=== PATIENT | female | born 1995 | race Caucasian/White ===

== ENCOUNTER 2017-09-23 10:28 | Emergency (ER) | payer MEDICARE, MEDICAID ==
[~2017-09-23] VITALS: Ht 162.6 cm; Wt 94.3 kg
[2017-09-23 12:27] LABS: ALANINE AMINOTRANSFERASE 21 U/L (12-78); ALBUMIN 3.5 G/DL (3.4-5.0); ALKALINE PHOSPHATASE 87 IU/L (46-116); ANION GAP 9 (8-16); ASPARTATE AMINO TRANSFERASE 15 U/L (10-37); BILIRUBIN,TOTAL 0.3 MG/DL (0.1-1.0); BLOOD UREA NITROGEN 9 MG/DL (7-18); BUN/CREATININE RATIO 12.7 (6.6-38.0); CALCIUM 8.8 MG/DL (8.5-10.1); CHLORIDE 108 MMOL/L (99-107); CREATININE 0.71 MG/DL (0.40-0.90); ETHANOL < 0.010 GM/DL (0.0-0.010); GLUCOSE 81 MG/DL (70-104); POTASSIUM 3.8 MMOL/L (3.5-5.1); SODIUM 143 MMOL/L (135-145); TOTAL CARBON DIOXIDE 25.7 MMOL/L (24-32); eGFR > 90 ML/MIN
[2017-09-23 12:31] LABS: BASOPHILS % (AUTO) 0.1 % (0-1); EOSINOPHILS # (AUTO) 0.1 X10'3 (0-0.9); EOSINOPHILS % (AUTO) 2.1 % (0-6); HEMATOCRIT 35.9 % (35.0-45.0); HEMOGLOBIN 12.7 g/dl (12.0-16.0); LYMPHOCYTES # (AUTO) 2.9 X10'3 (1.1-4.8); MEAN CORPUSCULAR HEMOGLOBIN 29.6 PG (27.0-31.0); MEAN CORPUSCULAR HGB CONC 35.3 % (33.0-36.5); MEAN CORPUSCULAR VOLUME 83.8 FL (78-98); MEAN PLATELET VOLUME 8.9 FL (7.4-10.4); MONOCYTES # (AUTO) 0.4 X10'3 (0-0.9); MONOCYTES % (AUTO) 6.4 % (2-12); NEUTROPHILS # (AUTO) 2.7 X10'3 (1.8-7.7); NEUTROPHILS % (AUTO) 44.4 % (42-75); PLATELET COUNT 373 X10'3 (140-440); RED BLOOD COUNT 4.28 X10'6 (4.20-5.60); RED CELL DISTRIBUTION WIDTH 12.8 % (11.5-14.5); WHITE BLOOD COUNT 6.1 X10'3 (4.5-11.0)
[2017-09-23 13:02] LABS: URINE HCG NEGATIVE (NEG)
[2017-09-23 13:04] LABS: CLARITY,URINE Clear (Clear); COLOR,URINE Yellow (Yellow); GLUCOSE, URINE Negative (Neg); KETONES,URINE Negative (Neg); LEUKOCYTE ESTERASE ,URINE Trace (Neg); NITRITES, URINE Negative (Neg); OCCULT BLOOD,URINE Negative (Neg); PROTEIN,URINE Negative (Neg); UROBILINOGEN,URINE 0.2 E.U/dL (0.2-1.0)
[2017-09-23 13:13] LABS: UA COLLECTION TYPE CLN CATCH MIDSTREAM; URINE AMPHETAMINE SCREEN NEGATIVE (Neg); URINE BARBITUATE SCREEN NEGATIVE (Neg); URINE BENZODIAZEPINES SCREEN NEGATIVE (Neg); URINE CANNABINOID SCREEN NEGATIVE (Neg); URINE COCAINE SCREEN NEGATIVE (Neg); URINE METHADONE SCREEN NEGATIVE (Neg); URINE OPIATE SCREEN NEGATIVE (Neg); URINE PHENCYCLIDINE SCREEN NEGATIVE (Neg)
[2017-09-23 13:15] LABS: RBC,URINE NONE SEEN /HPF (0-2); WBC,URINE 0-4 /HPF (0-4)
[2017-09-23 13:16] LABS: BACTERIA,URINE FEW /HPF (Neg); SQUAMOUS EPITHELIAL CELL,UR FEW /LPF (FEW)
[2017-09-23] MEDS ORDERED: FLUO20CA39 PO (15:19)
[2017-09-23] MEDS ORDERED: DIPH25CA46 PO (15:19)
[2017-09-23] MEDS ORDERED: QUET-1 PO ×2 (15:19)
[2017-09-23] MEDS ORDERED: diphenhydrAMINE 25mg capsule PO PRN (16:05)
[2017-09-23] MEDS ORDERED: quetiapine 100mg tablet PO SCH (21:00)
[2017-09-23 22:31] VITALS: BP 136/83
[2017-09-24] MEDS ORDERED: quetiapine 100mg tablet PO SCH (08:00)
[2017-09-24] MEDS ORDERED: FLUoxetine 20mg capsule PO SCH (08:00)
== END 2017-09-23 22:33 | disposition home or self-care (01) ==
LOC: ER 10:29
DX: R45.851 Suicidal ideations (principal); F41.9 Anxiety disorder, unspecified; F32.9 Major depressive disorder, single episode, unspecified
CPT/HCPCS: 36415; 80053; 80305; 80320; 81001; 81025; 84443; 85025; 99285

== ENCOUNTER 2017-09-23 20:40 | Inpatient (IN) | payer MEDICARE, MEDICAID ==
[~2017-09-23] VITALS: Ht 162.6 cm; Wt 90.6 kg
[~2017-09-23 20:40] MED LIST: DIPH25CA46 PO; FLUO20CA39 PO; QUET-1 PO
[2017-09-23 23:00] VITALS: BP 119/80
[2017-09-23] MEDS ORDERED: traZODone 50mg tablet PO PRN (23:20)
[2017-09-23] MEDS ORDERED: diphenhydrAMINE 25mg capsule PO PRN (23:30)
[2017-09-23] MEDS: hydrOXYzine 25 MG tablet PO PRN (23:38)
[2017-09-24 07:47] LABS: HEMOGLOBIN A1C 5.2 % (4.5-6.2)
[2017-09-24 07:56] LABS: CHOL/HDL RATIO 6.6 (0.00-4.99); CHOLESTEROL 159 MG/DL (0-200); HDL CHOLESTEROL 24 MG/DL (35-60); LDL CHOLESTEROL 120 MG/DL (50-100); TRIGLYCERIDES 87 MG/DL (20-135)
[2017-09-24 08:05] VITALS: BP 111/87
[2017-09-24] MEDS: FLUoxetine 20mg capsule PO SCH (08:17)
[2017-09-24] MEDS: quetiapine 100mg tablet PO SCH (08:17)
[2017-09-24 19:00] VITALS: BP 126/83
[2017-09-24] MEDS: hydrOXYzine 25 MG tablet PO PRN (20:31)
[2017-09-24] MEDS ORDERED: quetiapine 100mg tablet PO SCH (21:00)
[2017-09-25 07:34] VITALS: BP 125/74
[2017-09-25] MEDS ORDERED: HYDR-3717 PO (07:41)
[2017-09-25] MEDS: FLUoxetine 20mg capsule PO SCH (07:53)
[2017-09-25] MEDS: quetiapine 100mg tablet PO SCH (07:53)
== END 2017-09-25 10:25 | disposition home or self-care (01) | DRG 885 ==
LOC: ADULT MH 20:40
PROVIDERS: ADMIT Psychiatry & Neurology Psychiatry; ATTEND Psychiatry & Neurology Psychiatry
DX: F39 Unspecified mood [affective] disorder (principal); R45.851 Suicidal ideations; E66.9 Obesity, unspecified; F31.9 Bipolar disorder, unspecified; F41.9 Anxiety disorder, unspecified; Z59.0 Homelessness; Z79.899 Other long term (current) drug therapy; Z82.3 Family history of stroke; Z68.34 Body mass index [BMI] 34.0-34.9, adult
CPT/HCPCS: 36415; 80061; 83036; 87070; 99285; Q0163; Q0177

== ENCOUNTER 2017-11-11 08:07 | Emergency (ER) | payer MEDICARE, MEDICAID ==
[~2017-11-11] VITALS: Ht 162.6 cm; Wt 98.8 kg
[~2017-11-11 08:07] MED LIST changes: +ONDA8TAB6 PO
[2017-11-11 08:14] VITALS: BP 122/74
[2017-11-11] MEDS ORDERED: PHE12.5R RC (08:51)
[2017-11-11 09:02] LABS: CLARITY,URINE CLOUDY (Clear); COLOR,URINE YELLOW (Yellow); GLUCOSE, URINE NEGATIVE (Neg); KETONES,URINE TRACE mg/dl (Neg); LEUKOCYTE ESTERASE ,URINE TRACE (Neg); NITRITES, URINE NEGATIVE (Neg); OCCULT BLOOD,URINE LARGE (Neg); PROTEIN,URINE 30 mg/dl (Neg)
[2017-11-11 09:03] LABS: UA COLLECTION TYPE CLN CATCH MIDSTREAM
[2017-11-11 09:05] LABS: URINE HCG NEGATIVE (NEG)
[2017-11-11 09:10] LABS: BACTERIA,URINE 2+ /HPF (Neg); MUCUS STRANDS MODERATE /LPF (Neg); SQUAMOUS EPITHELIAL CELL,UR MANY /LPF (FEW); STARCH,URINE FEW /HPF (NEGATIVE); WBC,URINE 0-4 /HPF (0-4)
== END 2017-11-11 08:58 | disposition home or self-care (01) ==
LOC: ER 08:07
DX: R11.2 Nausea with vomiting, unspecified (principal); F41.9 Anxiety disorder, unspecified; F31.9 Bipolar disorder, unspecified; Z91.018 Allergy to other foods; Z79.899 Other long term (current) drug therapy
CPT/HCPCS: 81001; 81025; 99284

== ENCOUNTER 2017-11-21 18:04 | Emergency (ER) | payer MEDICARE, MEDICAID ==
[~2017-11-21] VITALS: Ht 162.6 cm; Wt 88.0 kg
[~2017-11-21 18:04] MED LIST changes: +PHE12.5R RC
[2017-11-21 19:03] LABS: BASOPHILS % (AUTO) 0.3 % (0-1); EOSINOPHILS # (AUTO) 0.1 X10'3 (0-0.9); EOSINOPHILS % (AUTO) 1.2 % (0-6); HEMATOCRIT 39.7 % (35.0-45.0); HEMOGLOBIN 13.9 g/dl (12.0-16.0); LYMPHOCYTES # (AUTO) 2.7 X10'3 (1.1-4.8); LYMPHOCYTES % (AUTO) 32.2 % (21-51); MEAN CORPUSCULAR HEMOGLOBIN 29.9 PG (27.0-31.0); MEAN CORPUSCULAR VOLUME 85.3 FL (78-98); MEAN PLATELET VOLUME 9.3 FL (7.4-10.4); MONOCYTES # (AUTO) 0.6 X10'3 (0-0.9); NEUTROPHILS # (AUTO) 4.9 X10'3 (1.8-7.7); NEUTROPHILS % (AUTO) 59.3 % (42-75); PLATELET COUNT 347 X10'3 (140-440); RED BLOOD COUNT 4.65 X10'6 (4.20-5.60); RED CELL DISTRIBUTION WIDTH 13.9 % (11.5-14.5); WHITE BLOOD COUNT 8.3 X10'3 (4.5-11.0)
[2017-11-21 19:16] LABS: ALBUMIN 3.9 G/DL (3.4-5.0); ALBUMIN/GLOBULIN RATIO 1.1 (1.1-1.5); ANION GAP 11 (8-16); ASPARTATE AMINO TRANSFERASE 13 U/L (10-37); BILIRUBIN,TOTAL 0.4 MG/DL (0.1-1.0); BLOOD UREA NITROGEN 6 MG/DL (7-18); BUN/CREATININE RATIO 6.5 (6.6-38.0); CHLORIDE 106 MMOL/L (99-107); CREATININE 0.92 MG/DL (0.40-0.90); GLUCOSE 94 MG/DL (70-104); POTASSIUM 3.9 MMOL/L (3.5-5.1); SODIUM 142 MMOL/L (135-145); TOTAL CARBON DIOXIDE 25.5 MMOL/L (24-32); TOTAL PROTEIN 7.3 G/DL (6.4-8.2); eGFR 75 ML/MIN
[2017-11-21 19:17] LABS: ALANINE AMINOTRANSFERASE 19 U/L (12-78); ALKALINE PHOSPHATASE 76 IU/L (46-116)
[2017-11-21 19:19] LABS: ETHANOL < 0.010 GM/DL (0.0-0.010)
[2017-11-21 19:26] LABS: URINE HCG NEGATIVE (NEG)
[2017-11-21 19:43] LABS: URINE AMPHETAMINE SCREEN NEGATIVE (Neg); URINE BARBITUATE SCREEN NEGATIVE (Neg); URINE BENZODIAZEPINES SCREEN NEGATIVE (Neg); URINE CANNABINOID SCREEN NEGATIVE (Neg); URINE COCAINE SCREEN NEGATIVE (Neg); URINE METHADONE SCREEN NEGATIVE (Neg); URINE OPIATE SCREEN NEGATIVE (Neg); URINE PHENCYCLIDINE SCREEN NEGATIVE (Neg)
[2017-11-22 00:38] VITALS: BP 118/53
== END 2017-11-22 00:40 | disposition home or self-care (01) ==
LOC: ER 18:05
DX: F31.9 Bipolar disorder, unspecified (principal); F41.9 Anxiety disorder, unspecified; R45.851 Suicidal ideations; Z79.899 Other long term (current) drug therapy
CPT/HCPCS: 36415; 80053; 80305; 80320; 81025; 85025; 99284

== ENCOUNTER 2018-01-31 20:53 | Emergency (ER) | payer MEDICARE, MEDICAID ==
[~2018-01-31] VITALS: Ht 162.6 cm; Wt 88.0 kg
[~2018-01-31 20:53] MED LIST changes: -PHE12.5R RC
[2018-01-31] MEDS ORDERED: dexamethasone sod phosphate 10mg/ml inj IV STA (21:17)
[2018-01-31] MEDS ORDERED: normal saline 1000ML IV soln IVB ONE (21:20)
[2018-01-31] MEDS ORDERED: famotidine/PF 10 mg/ml inj IV ONE (21:20)
[2018-01-31] MEDS ORDERED: epiNEPHrine 1 mg/ml inj SQ PRN (21:20)
[2018-01-31] MEDS ORDERED: EPIN0.3P8 IM (21:29)
[2018-01-31] MEDS ORDERED: PRED20TA PO (21:30)
[2018-01-31 22:40] VITALS: BP 119/65
== END 2018-01-31 22:44 | disposition home or self-care (01) ==
LOC: ER 20:54
DX: T78.1XXA Other adverse food reactions, not elsewhere classified, initial encounter (principal); X58.XXXA Exposure to other specified factors, initial encounter; Z79.899 Other long term (current) drug therapy
CPT/HCPCS: 96374; 96375; 99284; J1100; J3490; J7030

== ENCOUNTER 2018-03-20 18:34 | Emergency (ER) | payer MEDICARE, MEDICAID ==
[~2018-03-20] VITALS: Ht 162.6 cm; Wt 84.0 kg
[~2018-03-20 18:34] MED LIST changes: +EPIN0.3P8 IM
[2018-03-20 18:48] VITALS: BP 125/80
[2018-03-20] MEDS ORDERED: PENI250T2 PO (18:59)
[2018-03-20] MEDS ORDERED: IBUP-1984 PO (18:59)
[2018-03-20] MEDS ORDERED: HYDROcodone/acetaminophen 5mg/325mg tablet PO ONE (19:00)
== END 2018-03-20 19:09 | disposition home or self-care (01) ==
LOC: ER 18:35
DX: K08.89 Other specified disorders of teeth and supporting structures (principal); Z79.899 Other long term (current) drug therapy
CPT/HCPCS: 99283

== ENCOUNTER 2018-04-04 17:35 | Emergency (ER) | payer MEDICARE, MEDICAID ==
[~2018-04-04] VITALS: Ht 162.6 cm; Wt 83.5 kg
[~2018-04-04 17:35] MED LIST changes: +IBUP-1984 PO
[2018-04-04] MEDS ORDERED: famotidine/PF 10 mg/ml inj IV ONE (19:00)
[2018-04-04] MEDS ORDERED: diphenhydrAMINE 50 mg/ml inj IV ONE (19:00)
[2018-04-04] MEDS ORDERED: dexamethasone sod phosphate 10mg/ml inj IV STA (19:00)
[2018-04-04 20:01] VITALS: BP 139/76
== END 2018-04-04 20:03 | disposition home or self-care (01) ==
LOC: ER 17:36
DX: R21 Rash and other nonspecific skin eruption (principal); T78.40XA Allergy, unspecified, initial encounter; R06.02 Shortness of breath; Z79.899 Other long term (current) drug therapy; Z91.010 Allergy to peanuts; Y92.9 Unspecified place or not applicable
CPT/HCPCS: 96374; 96375; 99284; J1100; J1200; J3490

== ENCOUNTER 2018-04-06 22:00 | Emergency (ER) | payer MEDICARE, MEDICAID ==
[~2018-04-06] VITALS: Ht 162.6 cm; Wt 86.4 kg
[2018-04-06 23:44] VITALS: BP 110/60
== END 2018-04-07 00:05 | disposition home or self-care (01) ==
LOC: ER 22:00
DX: R22.0 Localized swelling, mass and lump, head (principal); T78.40XA Allergy, unspecified, initial encounter; Z91.010 Allergy to peanuts; Z79.899 Other long term (current) drug therapy; Y92.9 Unspecified place or not applicable
CPT/HCPCS: 99283

== ENCOUNTER 2018-04-12 00:40 | Emergency (ER) | payer MEDICARE, MEDICAID ==
[~2018-04-12] VITALS: Ht 162.6 cm; Wt 82.8 kg
[2018-04-12 00:42] VITALS: BP 115/76
[2018-04-12 01:09] LABS: CLARITY,URINE CLEAR (Clear); COLOR,URINE YELLOW (Yellow); GLUCOSE, URINE NEGATIVE (Neg); KETONES,URINE NEGATIVE (Neg); LEUKOCYTE ESTERASE ,URINE NEGATIVE (Neg); NITRITES, URINE NEGATIVE (Neg); OCCULT BLOOD,URINE NEGATIVE (Neg); PROTEIN,URINE NEGATIVE (Neg); UROBILINOGEN,URINE 0.2 E.U/dL (0.2-1.0)
[2018-04-12 01:11] LABS: URINE HCG NEGATIVE (NEG)
[2018-04-12 01:21] LABS: UA COLLECTION TYPE CLN CATCH MIDSTREAM
[2018-04-12 01:49] LABS: BASOPHILS # (AUTO) 0.1 X10'3 (0-0.2); BASOPHILS % (AUTO) 0.7 % (0-1); EOSINOPHILS # (AUTO) 0.2 X10'3 (0-0.9); EOSINOPHILS % (AUTO) 2.6 % (0-6); HEMATOCRIT 39.3 % (35.0-45.0); HEMOGLOBIN 13.6 g/dl (12.0-16.0); LYMPHOCYTES # (AUTO) 2.8 X10'3 (1.1-4.8); LYMPHOCYTES % (AUTO) 37.9 % (21-51); MEAN CORPUSCULAR HEMOGLOBIN 30.5 PG (27.0-31.0); MEAN CORPUSCULAR HGB CONC 34.7 % (33.0-36.5); MEAN PLATELET VOLUME 9.4 FL (7.4-10.4); MONOCYTES # (AUTO) 0.5 X10'3 (0-0.9); MONOCYTES % (AUTO) 6.1 % (2-12); NEUTROPHILS # (AUTO) 3.8 X10'3 (1.8-7.7); NEUTROPHILS % (AUTO) 52.7 % (42-75); PLATELET COUNT 354 X10'3 (140-440); RED BLOOD COUNT 4.47 X10'6 (4.20-5.60); RED CELL DISTRIBUTION WIDTH 12.5 % (11.5-14.5); WHITE BLOOD COUNT 7.4 X10'3 (4.5-11.0)
[2018-04-12 01:58] LABS: PROTHROMBIN TIME 10.7 SECONDS (9.0-12.0)
[2018-04-12 02:07] LABS: ALANINE AMINOTRANSFERASE 13 U/L (12-78); ALBUMIN 3.5 G/DL (3.4-5.0); ALBUMIN/GLOBULIN RATIO 1.1 (1.1-1.5); ALKALINE PHOSPHATASE 60 IU/L (46-116); ANION GAP 10 (8-16); ASPARTATE AMINO TRANSFERASE 12 U/L (10-37); BILIRUBIN,TOTAL 0.4 MG/DL (0.1-1.0); BLOOD UREA NITROGEN 5 MG/DL (7-18); BUN/CREATININE RATIO 5.3 (6.6-38.0); CALCIUM 8.7 MG/DL (8.5-10.1); CHLORIDE 109 MMOL/L (99-107); CREATININE 0.95 MG/DL (0.40-0.90); GLUCOSE 86 MG/DL (70-104); POTASSIUM 3.2 MMOL/L (3.5-5.1); SODIUM 143 MMOL/L (135-145); TOTAL CARBON DIOXIDE 23.8 MMOL/L (24-32); TOTAL PROTEIN 6.8 G/DL (6.4-8.2); eGFR 72 ML/MIN
[2018-04-12 02:20] LABS: BETA HCG,QUANTITATIVE < 1.0 mIU/ml
[2018-04-12] MEDS ORDERED: ONDA8TAB9 PO (02:21)
[2018-04-12] MEDS ORDERED: ondansetron 4mg rapidly disintigrating tab PO ONE (02:25)
[2018-04-12] MEDS ORDERED: HYDROcodone/acetaminophen 5mg/325mg tablet PO ONE (02:25)
[2018-04-15] MEDS ORDERED: MUPI15CR TOP (20:37)
== END 2018-04-12 02:30 | disposition home or self-care (01) ==
LOC: ER 00:41
DX: R11.2 Nausea with vomiting, unspecified (principal); R10.13 Epigastric pain; R19.7 Diarrhea, unspecified; G43.909 Migraine, unspecified, not intractable, without status migrainosus; G89.29 Other chronic pain; M54.9 Dorsalgia, unspecified
CPT/HCPCS: 36415; 80053; 81003; 81025; 84702; 85025; 85610; 99284

== ENCOUNTER 2018-04-28 01:22 | Emergency (ER) | payer MEDICARE, MEDICAID ==
[~2018-04-28] VITALS: Ht 152.4 cm; Wt 85.0 kg
[~2018-04-28 01:22] MED LIST changes: -IBUP-1984 PO; +MUPI15CR TOP; +ONDA8TAB9 PO
[2018-04-28 01:27] VITALS: BP 129/84
[2018-04-28] MEDS ORDERED: HYDROcodone/acetaminophen 5mg/325mg tablet PO STA (01:29)
[2018-04-28] MEDS ORDERED: IBUP-1986 PO (02:12)
== END 2018-04-28 02:15 | disposition home or self-care (01) ==
LOC: ER 01:22
DX: S60.212A Contusion of left wrist, initial encounter (principal); G89.29 Other chronic pain; Z79.899 Other long term (current) drug therapy; Z91.018 Allergy to other foods; W22.8XXA Striking against or struck by other objects, initial encounter; Y93.89 Activity, other specified; Y92.89 Other specified places as the place of occurrence of the external cause; Y99.8 Other external cause status
CPT/HCPCS: 73130; 99284

== ENCOUNTER 2018-06-07 19:59 | Emergency (ER) | payer MEDICARE, MEDICAID ==
[~2018-06-07] VITALS: Ht 162.6 cm; Wt 82.0 kg
[~2018-06-07 19:59] MED LIST changes: +IBUP-1986 PO
[2018-06-07] MEDS ORDERED: epiNEPHrine 1 mg/ml inj SQ STA (20:14)
[2018-06-07] MEDS ORDERED: famotidine/PF 10 mg/ml inj IV ONE (20:15)
[2018-06-07] MEDS ORDERED: methylPREDNISolone sod succ 125mg/2ml vial IV ONE (20:15)
[2018-06-07] MEDS ORDERED: diphenhydrAMINE 50 mg/ml inj IV ONE (20:15)
[2018-06-07] MEDS ORDERED: normal saline 1000ML IV soln IV ONE (20:15)
[2018-06-07] MEDS ORDERED: tranexamic acid 100mg/ml inj. IV ONE (20:15)
[2018-06-07] MEDS ORDERED: EPIN0.3P3 SQ (21:01)
[2018-06-07 22:19] VITALS: BP 107/59
== END 2018-06-07 22:22 | disposition home or self-care (01) ==
LOC: ER 20:00
DX: R42 Dizziness and giddiness (principal); T78.01XA Anaphylactic reaction due to peanuts, initial encounter; G43.909 Migraine, unspecified, not intractable, without status migrainosus; G89.29 Other chronic pain; Z79.899 Other long term (current) drug therapy; Z91.010 Allergy to peanuts; Y92.9 Unspecified place or not applicable
CPT/HCPCS: 93005; 96372; 96374; 96375; 99284; J0171; J1200; J2930; J3490

== ENCOUNTER 2018-08-10 11:12 | Emergency (ER) | payer MEDICARE, MEDICAID ==
[~2018-08-10] VITALS: Ht 162.6 cm; Wt 78.5 kg
[~2018-08-10 11:12] MED LIST changes: +EPIN0.3P3 SQ
[2018-08-10 11:19] VITALS: BP 135/82
[2018-08-10] MEDS ORDERED: IBUP-1985 PO (12:24)
== END 2018-08-10 13:00 | disposition home or self-care (01) ==
LOC: ER 11:12
DX: S50.11XA Contusion of right forearm, initial encounter (principal); S00.83XA Contusion of other part of head, initial encounter; S70.12XA Contusion of left thigh, initial encounter; M54.9 Dorsalgia, unspecified; G89.29 Other chronic pain; G43.909 Migraine, unspecified, not intractable, without status migrainosus; Z91.018 Allergy to other foods; Z79.899 Other long term (current) drug therapy; Y04.8XXA Assault by other bodily force, initial encounter; Y93.89 Activity, other specified; Y92.89 Other specified places as the place of occurrence of the external cause; Y99.8 Other external cause status
CPT/HCPCS: 99282